=== PATIENT | female | born 1995 | race Caucasian/White ===

== ENCOUNTER 2018-08-14 04:56 | Inpatient (IN) ==
[2018-08-14] MEDS ORDERED: DEXTROSE 5%-LACTATED RINGERS 1,000 ML IV PRN (05:07)
[2018-08-14] MEDS ORDERED: OXYTOCIN 20 UNITS in RINGER'S SOLUTION,LACTATED 1,000 ML IV ONE (05:07)
[2018-08-14] MEDS: RINGER'S SOLUTION,LACTATED 1,000 ML IV PRN ×2 (05:28→07:35)
[2018-08-14 05:33] LABS: Cocaine Ur Negative (NEGATIVE); Urine Barbiturate Negative (NEGATIVE); Urine Benzodiazepines Negative (NEGATIVE); Urine Opiates Negative (NEGATIVE); Urine PCP Negative (NEGATIVE); Urine THC Negative (NEGATIVE)
[2018-08-14] MEDS ORDERED: ceFAZolin SODIUM/DEXTROSE,ISO 2 GM/50 ML BAG IV ONE (06:00)
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
[2018-08-14] MEDS ORDERED: ONDANSETRON HCL/PF 2 MG/ML VIAL IV PRN (09:15)
[2018-08-14] MEDS ORDERED: oxyCODONE HCL/ACETAMINOPHEN 1 TAB TABLET PO PRN (09:15)
[2018-08-14] MEDS ORDERED: SIMETHICONE 80 MG TAB.CHEW PO PRN (09:15)
[2018-08-14] MEDS ORDERED: SENNOSIDES 8.6 MG TABLET PO PRN (09:15)
[2018-08-14] MEDS ORDERED: BISACODYL 10 MG SUPP.RECT RC PRN (09:15)
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
--- NOTE | 2018-08-14 09:21 | PN ---
Progess Note - Interim Date: 08/14/18 Time: 09:20 History for MU Definition: * The number of deliveries resulting in a live the patient experienced prior to current hospitalization * The previous delivery of live twins or any live multiple gestation is considered one live event. *If primagravida or nulliparous is documented select zero for the number of previous live births. Live Events: 2
--- NOTE | 2018-08-14 09:31 | ANES ---
Anesthesia Procedure Note Procedure Note: ANESTHESIA PROCEDURE NOTE Date of Procedure: 08/14/2018 Time of procedure: 9:15 AM. Performed by: MICHEAL Jones CRNA, MSN Aircraft Seat Upholsterer: Mary Estrada RN. Preprocedure diagnosis: Post section pain. Post procedure diagnosis: Same. Procedure: Bilateral TAP block Indications: Post section pain relief. Findings: See below. Details of the procedure: The patient was brought to PACU and placed in the supine position. The patient was prepped with chlorhexidine and using ultrasound guidance the 3 abdominal muscular planes were identified and lidocaine 1% was infiltrated to the skin of the intended injection site. Under ultrasound guidance the the internal oblique and transverse this abdominis muscle layers were approached with visualization of a 4 inch block needle until the tip of the needle rested in the plane between the muscles. 25 mL bupivacaine 0.5% with 1-200,000 epinephrine was injected and the procedure was repeated on the other side. Please see radiology/ultrasound report for details and images of the procedure. EBL: 0 Fluids: N/A. Specimen: N/A. Post procedure condition: The patient tolerated the procedure well. No complications were noted. Thank you for this consultation. Froilan Dillard CRNA, ARNP, MSN
--- NOTE | 2018-08-14 09:31 | ANES ---
Post Anesthesia Discharge - Transfer of Care Transfer of Care handoff given to nurse: Yes - Discharge from PACU Discharge from PACU when meets criteria: Yes - Aset and comfortable.
--- NOTE | 2018-08-14 09:46 | ANES ---
Post Anesthesia Assessment - Vital Signs Vitals: Last Vital Signs Temp 36.4 C 08/14/18 09:35 Pulse 96 08/14/18 09:35 Resp 15 08/14/18 09:35 BP 119/60 08/14/18 09:35 Pulse Ox 100 08/14/18 09:35 Airway Patency: Normal - Mental Status Level Of Consciousness: Awake, Alert, Appropriate - Pain Level Pain Score: 0 - N/V Assessment Nausea/Vomiting Presence: None Dehydration:: No
[2018-08-14] MEDS: DOCUSATE SODIUM 100 MG CAPSULE PO SCH ×2 (10:10→21:08)
[2018-08-14] MEDS: IBUPROFEN 800 MG TABLET PO PRN ×2 (10:13→16:18)
[2018-08-14] MEDS: oxyCODONE HCL/ACETAMINOPHEN 1 TAB TABLET PO PRN ×2 (16:18→19:24)
[2018-08-14] MEDS: ENOXAPARIN SODIUM 40 MG/0.4 ML SYRG SC SCH (16:59)
[2018-08-15] MEDS: oxyCODONE HCL/ACETAMINOPHEN 1 TAB TABLET PO PRN ×4 (00:44→19:59)
[2018-08-15] MEDS: IBUPROFEN 800 MG TABLET PO PRN ×4 (00:44→19:59)
[2018-08-15] MEDS: DOCUSATE SODIUM 100 MG CAPSULE PO SCH ×3 (06:51→19:59)
--- NOTE | 2018-08-15 08:02 | PN ---
Subjective - Date and Time Seen Date: 08/15/18 Time: 08:00 Subjective Narrative: Pt without complaints Objective Objective Narrative: See vital signs - Review of Systems Generalized/Overall Review: Reports: No Symptoms Reported Misc: All systems neg except as marked - Vitals Vitals: Last Vital Signs Temp 36.6 C 08/15/18 07:01 Pulse 79 08/15/18 07:01 Resp 16 08/15/18 07:01 BP 129/81 08/15/18 07:01 Pulse Ox 97 08/15/18 07:01 - Exam Constitutional: Present: Alert, Oriented x3, Cooperative, No distress Abdomen: Present: soft, nontender, nondistended - incision c/d/i Extremity: Present: non-tender, no calf tenderness Skin Exam: Present: normal color, warm/dry, no cyanosis Appearance: Present: appropriate appearance Eye contact: Present: cooperative Thoughts: Present: normal thought pattern Cauti Physician Documentation - Urinary Catheter Management Urethral (Farr) Urethral Indwelling: No Date of Insertion: 08/14/18 Time of Insertion: 07:50 Assessment/Plan Plan Narrative: POD 1 s/p delivery Doing well Discharge POD 3
[2018-08-15] MEDS: ENOXAPARIN SODIUM 40 MG/0.4 ML SYRG SC SCH (16:29)
[2018-08-16] MEDS: oxyCODONE HCL/ACETAMINOPHEN 1 TAB TABLET PO PRN ×3 (01:40→22:58)
[2018-08-16] MEDS: IBUPROFEN 800 MG TABLET PO PRN ×3 (01:41→17:26)
[2018-08-16] MEDS: DOCUSATE SODIUM 100 MG CAPSULE PO SCH ×2 (08:03→20:08)
--- NOTE | 2018-08-16 11:03 | PN ---
Subjective - Date and Time Seen Date: 08/16/18 Time: 10:58 Subjective Narrative: Pt without complaints Objective Objective Narrative: See vital signs - Review of Systems Generalized/Overall Review: Reports: No Symptoms Reported Misc: All systems neg except as marked - Vitals Vitals: Last Vital Signs Temp 36.6 C 08/16/18 08:12 Pulse 77 08/16/18 08:12 Resp 18 08/16/18 01:46 BP 127/75 08/16/18 08:12 Pulse Ox 98 08/16/18 08:12 - Exam Constitutional: Present: Alert, Oriented x3, Cooperative, No distress Abdomen: Present: soft, nontender, nondistended - incision c/d/i Extremity: Present: non-tender, no calf tenderness Skin Exam: Present: normal color, warm/dry, no cyanosis Appearance: Present: appropriate appearance Eye contact: Present: cooperative Thoughts: Present: normal thought pattern Cauti Physician Documentation - Urinary Catheter Management Urethral (Farr) Urethral Indwelling: No Date of Insertion: 08/14/18 Time of Insertion: 07:50 Assessment/Plan Plan Narrative: POD 2 s/p delivery Doing well Discharge tomorrow
[2018-08-16] MEDS: ENOXAPARIN SODIUM 40 MG/0.4 ML SYRG SC SCH (17:27)
[2018-08-17] MEDS: oxyCODONE HCL/ACETAMINOPHEN 1 TAB TABLET PO PRN (04:31)
[2018-08-17] MEDS: IBUPROFEN 800 MG TABLET PO PRN (04:31)
[2018-08-17] MEDS: DOCUSATE SODIUM 100 MG CAPSULE PO SCH (08:05)
[2018-08-17 09:15] VITALS: BP 140/88
--- NOTE | 2018-08-17 10:45 | PN ---
Subjective - Date and Time Seen Date: 08/17/18 Time: 10:43 Subjective Narrative: Pt without complaints Objective Objective Narrative: See vital signs - Review of Systems Generalized/Overall Review: Reports: No Symptoms Reported Misc: All systems neg except as marked - Vitals Vitals: Last Vital Signs Temp 36.9 C 08/17/18 08:16 Pulse 101 H 08/17/18 09:14 Resp 18 08/17/18 08:16 BP 140/88 H 08/17/18 09:14 Pulse Ox 99 08/17/18 08:16 - Exam Constitutional: Present: Alert, Oriented x3, Cooperative, No distress Abdomen: Present: soft, nontender, nondistended - incision c/d/i Appearance: Present: appropriate appearance Eye contact: Present: cooperative Thoughts: Present: normal thought pattern Cauti Physician Documentation - Urinary Catheter Management Urethral (Farr) Urethral Indwelling: No Date of Insertion: 08/14/18 Time of Insertion: 07:50 Assessment/Plan Plan Narrative: POD 3 s/p delivery Doing well Discharge home
== END 2018-08-17 14:15 | disposition home or self-care (01) | DRG 785 ==
LOC: OB 04:56
PROVIDERS: ADMIT Obstetrics & Gynecology; ATTEND Obstetrics & Gynecology
CPT/HCPCS: 59025; 80307